=== PATIENT | female | born 1990 | race Two or more races ===

== ENCOUNTER 2017-11-12 13:01 | Outpatient (CLI) | payer OTHER ==
[2017-11-12] MEDS: LACTATED RINGER'S 1,000 ML IV (13:50)
[2017-11-12] MEDS: SOD FERRIC GLUC COMPLX 125 MG in SOD CHLORIDE 0.9% 100 ML IVPB (13:50)
== END 2017-11-12 15:22 | disposition home or self-care (01) ==
LOC: OBT 13:01 → L-D 13:01 → OBT 15:22
DX: O99.013 Anemia complicating pregnancy, third trimester (principal); Z3A.34 34 weeks gestation of pregnancy
CPT/HCPCS: 96361; 96365

== ENCOUNTER 2017-11-13 10:25 | Outpatient (CLI) | payer OTHER ==
[2017-11-13] MEDS: LACTATED RINGER'S 1,000 ML IV* (11:10)
[2017-11-13] MEDS: SOD FERRIC GLUC COMPLX 125 MG in SOD CHLORIDE 0.9% 100 ML IVPB (11:57)
[2017-11-13] MEDS: TERBUTALINE 1 MG/ML INJ SC (12:31)
== END 2017-11-13 15:00 | disposition home or self-care (01) ==
LOC: OBT 10:25 → L-D 10:26 → OBT 15:00
DX: O62.9 Abnormality of forces of labor, unspecified (principal); Z3A.34 34 weeks gestation of pregnancy
CPT/HCPCS: 36415; 76818; 82731; 82962; 96365; 96372

== ENCOUNTER 2017-12-13 09:51 | Inpatient (IN) | payer OTHER ==
[2017-12-13] MEDS ORDERED: METHYLERGONOVINE 0.2 MG INJ IM (10:30)
[2017-12-13] MEDS ORDERED: CARBOPROST 250 MCG INJ IM ×2 (10:30→13:30)
[2017-12-13] MEDS ORDERED: OXYTOCIN 30 UNITS/LR 500 ML IV ×4 (10:30→23:32)
[2017-12-13] MEDS ORDERED: MISOPROSTOL 200 MCG TAB PR ×2 (10:30→13:30)
[2017-12-13] MEDS ORDERED: CEFAZOLIN 2 GM/50 ML (PMX) 50 ML IV (10:30)
[2017-12-13 10:52] LABS: ADD MAN DIFF? NO
[2017-12-13 10:59] LABS: WHITE BLOOD COUNT 8.8 10^3/ul (4.8-10.8)
[2017-12-13 10:59] LABS: ABNORMAL IP MESSAGE 1; BASOPHIL # 0.1 10^3/ul (0.0-0.1); BASOPHILS % 0.6 % (0.0-2.0); EOSINOPHILS # 0.1 10^3/ul (0.0-0.5); EOSINOPHILS % 0.9 % (0.0-7.0); HEMOGLOBIN 8.6 g/dl (12.0-16.0); LYMPHOCYTES # 1.7 10^3/ul (0.8-2.9); LYMPHOCYTES % 18.8 % (15.0-51.0); MEAN CORPUSCULAR HEMOGLOBIN 20.3 pg (29.0-33.0); MEAN CORPUSCULAR HGB CONC 30.7 g/dl (32.0-37.0); MONOCYTE # 0.6 10^3/ul (0.3-0.9); MONOCYTES % 6.3 % (0.0-11.0); NEUTROPHIL # 6.3 10^3/ul (1.6-7.5); NEUTROPHILS % 71.2 % (39.0-77.0); NUCLEATED RED BLOOD CELLS% 0.2 /100WBC (0.0-0.0); PLATELET COUNT 220 10^3/UL (140-415); RED BLOOD COUNT 4.24 10^6/ul (4.20-5.40); RED CELL DISTRIBUTION WIDTH 15.4 % (11.5-14.5)
[2017-12-13 11:09] LABS: POSITIVE DIFF @See below
[2017-12-13] MEDS: LACTATED RINGER'S 1,000 ML IV ×4 (11:15→13:00)
[2017-12-13 11:19] LABS: PROTIME 13.3 Sec (11.9-14.9)
[2017-12-13 11:20] LABS: PARTIAL THROMBOPLASTIN TIME 25.2 Sec (25.0-35.0)
[2017-12-13] MEDS: CITRIC ACID/SODIUM CITRATE 15 ML CUP PO (11:45)
[2017-12-13 12:04] LABS: HEPATITIS B SURFACE ANTIGEN NEGATIVE (NEGATIVE)
[2017-12-13] MEDS: OXYTOCIN 30 UNITS/LR 500 ML IV ×3 (13:02→17:42)
[2017-12-13] MEDS: CEFAZOLIN 2 GM/50 ML (PMX) 50 ML IV ×4 (13:09→21:28)
[2017-12-13] MEDS ORDERED: METHYLERGONOVINE 0.2 MG TAB PO (13:30)
[2017-12-13] MEDS ORDERED: NA PHOSPHATE/BIPHOS 133 ML ENEMA PR (13:30)
[2017-12-13] MEDS ORDERED: IBUPROFEN 800 MG TAB PO (14:00)
[2017-12-13] MEDS ORDERED: morphine (1 MG/ML) 10ML SYRINGE IV ×3 (15:00)
[2017-12-13] MEDS ORDERED: ONDANSETRON 4 MG INJ IV ×3 (15:00)
[2017-12-13] MEDS ORDERED: morphine 2 MG INJ IV ×3 (15:00)
[2017-12-13] MEDS ORDERED: DIPHENHYDRAMINE 50 MG INJ IV ×2 (15:00)
[2017-12-13] MEDS ORDERED: NALOXONE (0.4 MG/ML) INJ IV (15:00)
[2017-12-13] MEDS: METHYLERGONOVINE 0.2 MG INJ IM (16:35)
[2017-12-13] MEDS: KETOROLAC 30 MG INJ IV ×2 (17:43→21:00)
[2017-12-13] MEDS: LANOLIN 7 GM TUBE TOP (18:40)
[2017-12-13 20:41] LABS: RAPID PLASMA REAGIN NONREACTIVE (NR)
[2017-12-13] MEDS: SENNA/DOCUSATE NA (8.6MG/50MG) TAB PO (21:23)
[2017-12-13] MEDS ORDERED: KETOROLAC 30 MG INJ (23:32)
[2017-12-13] MEDS ORDERED: BUPIVACAINE 0.75%/DEXT (SPINAL) 2 ML INJ (23:32)
[2017-12-13] MEDS ORDERED: morphine SULFATE/PF (10 MG/10 ML) INJ (23:32)
[2017-12-13] MEDS ORDERED: FENTAnyl 50 MCG/ML VIAL (23:32)
[2017-12-13] MEDS ORDERED: ONDANSETRON 4 MG INJ (23:32)
[2017-12-13] MEDS ORDERED: METOCLOPRAMIDE 10 MG INJ (23:32)
[2017-12-14] MEDS: KETOROLAC 30 MG INJ IV ×3 (00:52→08:46)
[2017-12-14] MEDS: LACTATED RINGER'S 1,000 ML IV ×2 (03:05→05:02)
[2017-12-14] MEDS: CEFAZOLIN 2 GM/50 ML (PMX) 50 ML IV (06:01)
[2017-12-14] MEDS: SENNA/DOCUSATE NA (8.6MG/50MG) TAB PO ×2 (08:46→20:12)
[2017-12-14 10:01] LABS: ADD MAN DIFF? NO
[2017-12-14 10:04] LABS: WHITE BLOOD COUNT 11.9 10^3/ul (4.8-10.8)
[2017-12-14 10:04] LABS: ABNORMAL IP MESSAGE 1; BASOPHILS % 0.3 % (0.0-2.0); EOSINOPHILS % 0.2 % (0.0-7.0); HEMATOCRIT 24.3 % (37.0-47.0); HEMOGLOBIN 7.5 g/dl (12.0-16.0); LYMPHOCYTES % 8.3 % (15.0-51.0); MEAN CORPUSCULAR HGB CONC 30.9 g/dl (32.0-37.0); MEAN CORPUSCULAR VOLUME 64.8 fl (82.0-101.0); MONOCYTE # 0.7 10^3/ul (0.3-0.9); MONOCYTES % 5.5 % (0.0-11.0); NEUTROPHIL # 10.1 10^3/ul (1.6-7.5); NEUTROPHILS % 84.7 % (39.0-77.0); PLATELET COUNT 208 10^3/UL (140-415); RED BLOOD COUNT 3.75 10^6/ul (4.20-5.40); RED CELL DISTRIBUTION WIDTH 15.3 % (11.5-14.5)
[2017-12-14] MEDS: BISACODYL (EC) 5 MG TAB PO (12:01)
[2017-12-14] MEDS: IBUPROFEN 800 MG TAB PO ×2 (13:57→21:47)
[2017-12-14] MEDS: HYDROCODONE/APAP (5/325) TAB PO (20:11)
[2017-12-15] MEDS: IBUPROFEN 800 MG TAB PO ×3 (05:30→22:12)
[2017-12-15] MEDS: HYDROCODONE/APAP (5/325) TAB PO ×2 (07:45→20:43)
[2017-12-15] MEDS: SENNA/DOCUSATE NA (8.6MG/50MG) TAB PO ×2 (09:00→20:42)
[2017-12-15 10:43] LABS: ADD MAN DIFF? NO
[2017-12-15 10:44] LABS: ABNORMAL IP MESSAGE 1; BASOPHILS % 0.3 % (0.0-2.0); EOSINOPHILS # 0.1 10^3/ul (0.0-0.5); EOSINOPHILS % 0.9 % (0.0-7.0); HEMATOCRIT 24.1 % (37.0-47.0); HEMOGLOBIN 7.3 g/dl (12.0-16.0); LYMPHOCYTES # 1.1 10^3/ul (0.8-2.9); LYMPHOCYTES % 11.2 % (15.0-51.0); MEAN CORPUSCULAR HEMOGLOBIN 20.2 pg (29.0-33.0); MEAN CORPUSCULAR HGB CONC 30.3 g/dl (32.0-37.0); MEAN CORPUSCULAR VOLUME 66.8 fl (82.0-101.0); MONOCYTE # 0.5 10^3/ul (0.3-0.9); MONOCYTES % 5.4 % (0.0-11.0); NEUTROPHIL # 7.8 10^3/ul (1.6-7.5); NEUTROPHILS % 81.6 % (39.0-77.0); PLATELET COUNT 227 10^3/UL (140-415); RED BLOOD COUNT 3.61 10^6/ul (4.20-5.40); RED CELL DISTRIBUTION WIDTH 15.2 % (11.5-14.5)
[2017-12-15 10:44] LABS: WHITE BLOOD COUNT 9.6 10^3/ul (4.8-10.8)
[2017-12-15 10:45] LABS: POSITIVE DIFF @See below
[2017-12-15] MEDS: LANOLIN 7 GM TUBE TOP (22:12)
[2017-12-16] MEDS: IBUPROFEN 800 MG TAB PO ×2 (05:42→14:36)
[2017-12-16] MEDS ORDERED: MEASLES,MUMPS,RUBELLA VACCINE INJ SC* (09:00)
[2017-12-16 09:11] LABS: ADD MAN DIFF? NO
[2017-12-16 09:23] LABS: ABNORMAL IP MESSAGE 1; BASOPHILS % 0.4 % (0.0-2.0); EOSINOPHILS # 0.3 10^3/ul (0.0-0.5); EOSINOPHILS % 3.1 % (0.0-7.0); HEMATOCRIT 23.6 % (37.0-47.0); HEMOGLOBIN 7.1 g/dl (12.0-16.0); LYMPHOCYTES # 1.3 10^3/ul (0.8-2.9); LYMPHOCYTES % 15.4 % (15.0-51.0); MEAN CORPUSCULAR HEMOGLOBIN 20.2 pg (29.0-33.0); MEAN CORPUSCULAR HGB CONC 30.1 g/dl (32.0-37.0); MEAN CORPUSCULAR VOLUME 67.2 fl (82.0-101.0); MONOCYTE # 0.5 10^3/ul (0.3-0.9); MONOCYTES % 5.6 % (0.0-11.0); NEUTROPHIL # 6.1 10^3/ul (1.6-7.5); NEUTROPHILS % 74.8 % (39.0-77.0); PLATELET COUNT 252 10^3/UL (140-415); RED BLOOD COUNT 3.51 10^6/ul (4.20-5.40); RED CELL DISTRIBUTION WIDTH 15.2 % (11.5-14.5)
[2017-12-16 09:23] LABS: WHITE BLOOD COUNT 8.2 10^3/ul (4.8-10.8)
[2017-12-16] MEDS: SENNA/DOCUSATE NA (8.6MG/50MG) TAB PO (09:26)
[2017-12-16 09:34] LABS: MEAN PLATELET VOLUME 13.2 fl (7.4-10.4)
[2017-12-16] MEDS: DIPHTH/TET/ACEL PERTUSS (ADULT) 0.5 ML VIAL IM* (12:15)
[2017-12-16] MEDS: SOD FERRIC GLUC COMPLX 125 MG in SOD CHLORIDE 0.9% 100 ML IVPB (12:47)
== END 2017-12-16 16:17 | disposition home or self-care (01) | DRG 766 ==
LOC: L-D 09:51 → PP1 17:52
PROVIDERS: Obstetrics & Gynecology
PROC: 10D00Z1 Extraction of Products of Conception, Low, Open Approach (ICD-10-PCS; principal; 2017-12-13 12:30)
PROC: 0UL70ZZ Occlusion of Bilateral Fallopian Tubes, Open Approach (ICD-10-PCS; 2017-12-13 12:30)
PROC: 3E033VJ Introduction of Other Hormone into Peripheral Vein, Percutaneous Approach (ICD-10-PCS; 2017-12-13 12:30)
DX: O34.211 Maternal care for low transverse scar from previous cesarean delivery (principal); O99.02 Anemia complicating childbirth; O99.62 Diseases of the digestive system complicating childbirth; K66.0 Peritoneal adhesions (postprocedural) (postinfection); Z30.2 Encounter for sterilization; Z3A.39 39 weeks gestation of pregnancy; Z37.0 Single live birth
CPT/HCPCS: 85025; 85610; 85730; 86592; 86850; 86900; 86901; 87340; 88302; 99464

== ENCOUNTER 2017-12-17 11:13 | Emergency (ER) | payer OTHER ==
[2017-12-17] MEDS: SOD CHLORIDE 0.9% 1,000 ML IV (12:03)
[2017-12-17] MEDS: ONDANSETRON 4 MG INJ IV (12:03)
[2017-12-17 12:23] LABS: ADD MAN DIFF? NO
[2017-12-17 12:25] LABS: WHITE BLOOD COUNT 7.2 10^3/ul (4.8-10.8)
[2017-12-17 12:25] LABS: ABNORMAL IP MESSAGE 1; BASOPHILS % 0.3 % (0.0-2.0); EOSINOPHILS # 0.2 10^3/ul (0.0-0.5); EOSINOPHILS % 2.2 % (0.0-7.0); HEMATOCRIT 25.4 % (37.0-47.0); HEMOGLOBIN 7.6 g/dl (12.0-16.0); LYMPHOCYTES # 0.8 10^3/ul (0.8-2.9); LYMPHOCYTES % 10.7 % (15.0-51.0); MEAN CORPUSCULAR HEMOGLOBIN 20.1 pg (29.0-33.0); MEAN CORPUSCULAR HGB CONC 29.9 g/dl (32.0-37.0); MEAN PLATELET VOLUME 12.1 fl (7.4-10.4); MONOCYTE # 0.3 10^3/ul (0.3-0.9); MONOCYTES % 4.4 % (0.0-11.0); NEUTROPHIL # 5.8 10^3/ul (1.6-7.5); PLATELET COUNT 290 10^3/UL (140-415); RED BLOOD COUNT 3.79 10^6/ul (4.20-5.40); RED CELL DISTRIBUTION WIDTH 14.9 % (11.5-14.5)
[2017-12-17 12:37] LABS: ADD UMIC YES; UR ASCORBIC ACID NEGATIVE (NEGATIVE); UR BILIRUBIN (Dip) NEGATIVE (NEGATIVE); UR BLOOD (Dip) 2+ mg/dL (NEGATIVE); UR CLARITY CLEAR (CLEAR); UR COLOR YELLOW (YELLOW); UR GLUCOSE (Dip) NEGATIVE (NEGATIVE); UR KETONES (Dip) NEGATIVE (NEGATIVE); UR LEUKOCYTE ESTERASE (Dip) NEGATIVE Leu/ul (NEGATIVE); UR MUCUS FEW /HPF (NONE SEEN); UR NITRITE (Dip) NEGATIVE (NEGATIVE); UR RBC 5 /HPF (0-5); UR SPECIFIC GRAVITY (Dip) 1.019 (1.003-1.030); UR SQUAMOUS EPITHELIAL CELL FEW /HPF (FEW); UR TOTAL PROTEIN (Dip) NEGATIVE (NEGATIVE); UR UROBILINOGEN (Dip) NEGATIVE (NEGATIVE); UR WBC 3 /HPF (0-5)
[2017-12-17 12:47] LABS: ALANINE AMINOTRANSFERASE 25 IU/L (13-69); ALBUMIN 3.3 g/dl (3.3-4.9); ALBUMIN/GLOBULIN RATIO 1.03; ALKALINE PHOSPHATASE 92 IU/L (42-121); ANION GAP 9 (8-16); ASPARTATE AMINO TRANSFERASE 25 IU/L (15-46); BILIRUBIN,INDIRECT 0.6 mg/dl (0-1.1); BILIRUBIN,TOTAL 0.6 mg/dl (0.2-1.3); BLOOD UREA NITROGEN 9 mg/dl (7-20); CARBON DIOXIDE 25 mmol/L (21-31); CHLORIDE 113 mmol/L (97-110); CREATININE 0.48 mg/dl (0.44-1.00); GLUCOSE 85 mg/dl (70-220); POTASSIUM 3.9 mmol/L (3.5-5.1); SODIUM 143 mmol/L (135-144); TOTAL PROTEIN 6.5 g/dl (6.1-8.1)
[2017-12-17 12:51] LABS: LIPASE 30 U/L (23-300)
== END 2017-12-17 14:37 | disposition home or self-care (01) ==
LOC: FTE 14:37
DX: O99.89 Other specified diseases and conditions complicating pregnancy, childbirth and the puerperium (principal); R51 Headache; R11.10 Vomiting, unspecified
CPT/HCPCS: 36415; 70450; 74176; 80053; 81001; 83690; 85025; 96374; 99285-25